=== PATIENT | male | born 1980 | race Caucasian/White ===

== ENCOUNTER 2020-04-15 14:17 | Emergency (ER) | payer OTHER ==
[2020-04-15 14:26] VITALS: BP 158/89
--- NOTE | 2020-04-15 14:54 | ER Document Report ---
HPI - HPI Patient complains to provider of: Possible exposure to bat saliva Time Seen by Provider: 04/15/20 14:33 Onset: This morning Onset/Duration: Sudden Quality of pain: No pain Severity: None Pain Level: Denies Context: 40-year-old male presented to ED for possible exposure to backslash this morning. He states he went in for his normal morning walking about 3 minutes before home he felt a drop of something liquid go down the side of his face beside his. He states he wiped off then went home and took a shower. 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 He states he contacted the health department and they told him he should go to the emergency room and get back immunizations and postexposure treatment. He states he was concerned about this so he called [facility] for disease postexposure line and they told him that he should possibly get the postexposure treatment so he has come to the emergency room to get the rabies postexposure treatment. I did consult Dr. Flores came and spoke with the patient. He stated yes gives a postexposure cascade 1 shot in each buttocks instead of putting the shots around his eye as we do not have a wound. Associated Symptoms: None Exacerbated by: Denies Relieved by: Denies Similar symptoms previously: No Recently seen / treated by doctor: No - ROS ROS below otherwise negative: Yes - CONSTITUTIONAL Constitutional: DENIES: Fever, Chills - EENT EENT: DENIES: Sore Throat, Ear Pain, Nasal Drainage-Clear, Nasal Drainage- Purulent, Congestion, Eye problems - NEURO Neurology: DENIES: Headache, Weakness, Vision blurred, Dizzinesss / Vertigo - CARDIOVASCULAR Cardiovascular: DENIES: Chest pain - RESPIRATORY Respiratory: DENIES: Trouble Breathing, Coughing - GASTROINTESTINAL Gastrointestinal: DENIES: Abdominal Pain, Nausea, Patient vomiting, Diarrhea, Constipation, Black / Bloody Stools - URINARY Urinary: DENIES: Dysuria, Urgency, Frequency - REPRODUCTIVE Reproductive: DENIES: :, Postmenopausal, Abnormal bleeding / discharge - MUSCULOSKELETAL Musculoskeletal: DENIES: Extremity pain, Back Pain, Neck Pain, Swelling - DERM Skin Color: Normal Skin Problems: None Past Medical History - General Information source: Patient - Social History Smoking Status: Never Smoker Chew tobacco use (# tins/day): No Frequency of alcohol use: None Drug Abuse: None Family History: Reviewed & Not Pertinent Patient has suicidal ideation: No Patient has homicidal ideation: No - Past Medical History Cardiac Medical History: Reports: None Pulmonary Medical History: Reports: None EENT Medical History: Reports: None Neurological Medical History: Reports: None Endocrine Medical History: Reports: None Renal/ Medical History: Reports: None Malignancy Medical History: Reports None GI Medical History: Reports: None Musculoskeletal Medical History: Reports None Skin Medical History: Reports None Psychiatric Medical History: Reports: None Traumatic Medical History: Reports: None Infectious Medical History: Reports: None Past Surgical History: Reports: Hx Orthopedic Surgery - Immunizations Immunizations up to date: Yes Hx Diphtheria, Pertussis, Tetanus Vaccination: Yes Vertical Provider Document - CONSTITUTIONAL Agree With Documented VS: Yes Exam Limitations: No Limitations General Appearance: WD/WN, No Apparent Distress - HEENT HEENT: Atraumatic, Normal ENT Exam, Normocephalic, PERRLA Notes: No signs of any inflammation or infection no redness to the no open areas beside the to the skin. - NECK Neck: Normal Inspection, Supple, Thyroid Normal - RESPIRATORY Respiratory: Breath Sounds Normal, No Respiratory Distress, Chest Non-Tender - CARDIOVASCULAR Cardiovascular: Regular Rhythm. negative: Regular Rate - Pulse between 102 and 120 due to anxiety about getting the rabies shots - GI/ABDOMEN Gastrointestinal: Abdomen Soft, Abdomen Non-Tender, Abdomen Tender, No Organomegaly, Normal Bowel Sounds - MUSCULOSKELETAL/EXTREMETIES Musculoskeletal/Extremeties: MAEW, FROM, Non-Tender - NEURO Level of Consciousness: Awake, Alert, Appropriate Motor/Sensory: No Motor Deficit, No Sensory Deficit, No Pronator Drift Deep Tendon Reflexes: 2+ - DERM Integumentary: Warm, Dry, No Rash Course - Vital Signs Vital signs: Temp Pulse Resp BP Pulse Ox 98.5 F 110 H 16 158/89 H 98 04/15/20 14:28 04/15/20 14:39 04/15/20 14:24 04/15/20 14:24 04/15/20 14:24 Discharge - Discharge Clinical Impression: Possible exposure to bat saliva Condition: Stable Disposition: HOME, SELF-CARE Additional Instructions: You were seen today for possible exposure to bat saliva when your face. He states she was out walking when a bat was flying over top of you and water fell on the side of your face beside your eye. You state it was not raining and a bat was flying over your head As you stated just discussed this with disease control and they recommended the that postexposure treatment. I also discussed it with the medical transport specialist Dr. flores recommended you get the exposure treatment. Rabies Prophyllaxis Rabies immunization can prevent infection with the rabies virus. This virus is always fatal if it reaches the nervous system. Exposure to an infected animal's saliva requires a series of shots. If you're already immunized, you may need only a booster shot. It's critical for you to follow the exact schedule of immunizations. After the first shot, we give repeat doses in 3 days, 7 days, 14 days, and 28 days. The repeat doses can also be given through the Health Department or by special arrangement with your doctor. Ibuprofen or acetaminophen can be used for aching and swelling at the injection site. Call the doctor or return if you develop increasing pain, fever, chills, or spreading redness, or if you become short of breath or faint. Return as listed on the sheet you were given for the rest of the vaccines scheduled doses for rabies you will just need to check in as a nurse visit and get your vaccine. FOLLOW-UP CARE: If you have been referred to a physician for follow-up care, call the physicians office for an appointment as you were instructed or within the next two days. If you experience worsening or a significant change in your symptoms, notify the physician immediately or return to the Emergency Department at any time for re-evaluation. Forms: Elevated Blood Pressure Referrals: ILDEFONSO VALDES MD [Primary Care Provider] - Follow up as needed
[2020-04-15] MEDS ORDERED: RABIES VACCINE (PCEC)/PF 2.5 UNIT/1 ML KIT IM ONE (14:55)
[2020-04-15] MEDS ORDERED: RABIES IMMUNE GLOBULIN INJ/PF 300 UNIT/ML VIAL IM ONE (14:55)
[2020-04-18] MEDS ORDERED: RABIES VACCINE (PCEC)/PF 2.5 UNIT/1 ML KIT IM ONE (08:45)
== END 2020-04-15 15:40 | disposition home or self-care (01) ==
LOC: ER 14:17
DX: Z23 Encounter for immunization (principal)
CPT/HCPCS: 90375; 90471; 90675; 96372; 99284